=== PATIENT | male | born 1990 | race Caucasian/White ===

== ENCOUNTER 2025-01-23 13:08 | Emergency (ER) | payer OTHER ==
[~2025-01-23] VITALS: Ht 157.5 cm; Wt 74.8 kg
[~2025-01-23 13:08] MED LIST: KETO10 PO; PROC10 PO; PROM25 PO; Percocet 5-3251 EACH PO
[2025-01-23] MEDS ORDERED: Ketorolac Tromethamine 15mg Vial IM ONE (13:45)
== END 2025-01-23 14:49 | disposition home or self-care (01) ==
LOC: ER 13:08
DX: S63.92XA Sprain of unspecified part of left wrist and hand, initial encounter (principal); W18.30XA Fall on same level, unspecified, initial encounter; M79.642 Pain in left hand; M79.89 Other specified soft tissue disorders
CPT/HCPCS: 71100; 73110; 73130; 96372; 99284-25; J1885

== ENCOUNTER → 2025-02-16 | Outpatient (CLI) | payer OTHER ==
[2025-02-18 10:34] LABS: APTIMA MEDIA TYPE Urine; C. TRACHOMATIS BY TMA Positive (Negative); N. GONORRHOEAE BY TMA Negative (Negative)
[2025-02-18 10:41] LABS: HIV 1,2 COMBO ANTIGEN/ANTIBODY Negative (Negative)
[2025-02-18 22:48] LABS: TREPONEMA PALLIDUM AB BY TP-PA Non Reactive (Non Reactive)
== END ==
LOC: LAB 12:30 → LAB SHORT 12:30
PROVIDERS: Nurse Practitioner
DX: Z20.2 Contact with and (suspected) exposure to infections with a predominantly sexual mode of transmission (principal)
CPT/HCPCS: 86592; 86780; 87389; 87491; 87591